=== PATIENT | male | born 1985 | race Caucasian/White ===

== ENCOUNTER → 2019-01-09 | Outpatient (CLI) | payer OTHER ==
[~2019-01-09] MED LIST: AMOX-556 PO; NO MEDS; OND8 PO
--- NOTE | 2019-01-09 08:50 | RADIOLOGY IMAGING REPORT ---
FACILITY: [facility] - [place] PATIENT NAME: Joel Ricci : 1985 MR: [id number] V: [id number] EXAM DATE: ORDERING PHYSICIAN: ADRIENNE REYNOSO TECHNOLOGIST: Location: [facility] - [place] Patient: Joel Ricci : 1985 Visit/Account:[id number] Date of Sevice: 01/09/2019 Right knee, two views, and left knee, two views. HISTORY: Bilateral knee pain. COMPARISON: None. Minimal spurring is present along the intercondylar tibial eminences bilaterally. Minimal joint spac e narrowing is present in the medial and lateral compartments bilaterally. The patellofemoral compar tments are unremarkable bilaterally. No joint effusions. A fabella is present posteriorly on each s jad. IMPRESSION: Minimal bilateral osteoarthritis. Otherwise negative. Report Dictated By: Ke Warner MD at 01/09/2019 8:36 AM Report E-Signed By: Ke Warner MD at 01/09/2019 8:45 AM WSN:[id number]
== END ==
LOC: RAD 08:06
PROVIDERS: ATTEND Nurse Practitioner Family
DX: M17.0 Bilateral primary osteoarthritis of knee (principal)

== ENCOUNTER → 2019-01-25 | Outpatient (CLI) | payer OTHER ==
--- NOTE | 2019-01-25 17:26 | RADIOLOGY IMAGING REPORT ---
FAC[place] [facility] [place]IENT NAME: Joel Ricci : 1985 MR: [id number] V: [id number] EXAM DATE: ORDERING PHYSICIAN: ADRIENNE REYNOSO TECHNOLOGIST: Location: [facility] Patient: Joel Ricci : 1985 Visit/Account:[id number] Date of Sevice: 01/25/2019 L-SPINE 2 OR 3 VIEW, THORACIC SPINE 2 VIEW Indication: Back pain., Comparison: None available FINDINGS: Thoracic spine: The vertebral body heights and disc spaces are well maintained. There is no acute osseous or acute alignment abnormality. Mild marginal anterior osteophytes seen throughout the thoracic spine. Lumbar spine: There are 5 lumbar type vertebral bodies. There is small cortical regularity noted involving the anterior superior endplate of the L4 vertebral body consistent with limbus vertebrae. Mild straightening of the normal cervical lordosis is presen t. No evidence of spondylolisthesis or spondylolysis. The vertebral body heights appear well-maintained. 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
--- NOTE | 2019-01-25 17:27 | RADIOLOGY IMAGING REPORT ---
FACILITY: [facility] - [place] PATIENT NAME: Joel Ricci : 1985 MR: [id number] V: [id number] EXAM DATE: ORDERING PHYSICIAN: ADRIENNE REYNOSO TECHNOLOGIST: Location: [facility] Patient: Joel Ricci : 1985 Visit/Account:[id number] Date of Sevice: 01/25/2019 L-SPINE 2 OR 3 VIEW, THORACIC SPINE 2 VIEW Indication: Back pain., Comparison: None available FINDINGS: Thoracic spine: The vertebral body heights and disc spaces are well maintained. There is no acute osseous or acute alignment abnormality. Mild marginal anterior osteophytes seen throughout the thoracic spine. Lumbar spine: There are 5 lumbar type vertebral bodies. There is small cortical regularity noted involving the anterior superior endplate of the L4 vertebral body consistent with limbus vertebrae. Mild straightening of the normal cervical lordosis is presen t. No evidence of spondylolisthesis or spondylolysis. The vertebral body heights appear well-maintained. 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
== END ==
LOC: RAD 16:13
PROVIDERS: ATTEND Nurse Practitioner Family
DX: M54.6 Pain in thoracic spine (principal); M54.5 Low back pain
CPT/HCPCS: 72070; 72100